=== PATIENT | male | born 1980 | race African-American/Black ===

== ENCOUNTER 2016-07-14 03:48 | Emergency (ER) | payer SELFPAY ==
[~2016-07-14 03:48] MED LIST: NO MEDICATIONS
[2016-07-14 04:50] LABS: URINE APPEARANCE CLEAR; URINE BILIRUBIN NEG (NEG); URINE BLOOD NEG (NEG); URINE COLOR YELLOW; URINE GLUCOSE NEG (NEG); URINE KETONE NEG (NEG); URINE LEUKOCYTE ESTERASE NEG (NEG); URINE NITRATE NEG (NEG); URINE PH 5.5 (5-8); URINE PROTEIN NEG (NEG); URINE SPECIFIC GRAVITY 1.004 (1.003-1.035); URINE UROBILINOGEN 0.2 MG/DL (NEG)
[2016-07-14 04:55] LABS: CULTURE INDICATED? NO
[2016-07-16 11:06] LABS: CHLAMYDIA TRACH Not Detected (Not Detected); N GONOR Not Detected (Not Detected)
== END 2016-07-14 05:20 | disposition home or self-care (01) ==
LOC: CED 03:48
PROVIDERS: Nurse Practitioner Family
DX: Z20.2 Contact with and (suspected) exposure to infections with a predominantly sexual mode of transmission (principal); F17.210 Nicotine dependence, cigarettes, uncomplicated
CPT/HCPCS: 81003; 87491; 87591; 99282; 99283